=== PATIENT | male | born 1990 | race Caucasian/White ===

== ENCOUNTER 2017-10-27 08:33 | Emergency (ER) | payer BC, OTHER ==
[2017-10-27 08:38] VITALS: BP 117/63; PULSE 69; TEMP 98.5; BMI 24.3
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
== END 2017-10-27 09:26 | disposition home or self-care (01) ==
LOC: FER 08:33
DX: Z48.02 Encounter for removal of sutures (principal)
CPT/HCPCS: 99281-25

== ENCOUNTER → 2021-04-03 | Emergency (ER) | payer SELFPAY | END | disposition left against medical advice (07) | LOC: FER 12:18 | DX: K14.8 Other diseases of tongue (principal) | CPT/HCPCS: 99282-25 ==